=== PATIENT | female | born 1945 | race Caucasian/White ===

== ENCOUNTER → 2018-04-09 08:30 | Outpatient (CLI) | payer MEDICARE, SELFPAY ==
[2018-04-09 09:00] LABS: Add Manual Diff / Slide Review NO; Basophils Percent Auto 0.6 % (0-2); Eosinophils Percent Auto 2.1 % (2-4); Hematocrit 39.3 % (36-46); Hemoglobin 14.2 g/dL (12.0-16.0); Lymphocytes Percent Auto 31.8 % (25-40); Mean Corpuscular HGB Conc 36.2 % (30-36); Mean Corpuscular Hemoglobin 30.6 PG (26-34); Mean Corpuscular Volume 84.6 fL (80-100); Monocytes Percent Auto 5.3 % (3-14); Neutrophils Absolute Auto 4100 /uL (3000-5900); Neutrophils Percent Auto 60.2 % (50-75); Platelet Count 105 X10^3/uL (150-400); Red Blood Cell Count 4.64 X10^6/uL (4.0-5.2); Red Cell Distribution Width 13.1 % (11.6-14.8); White Blood Cell Count 6.8 X10^3/uL (4.5-11.0)
[2018-04-09 09:09] LABS: Alanine Aminotransferase 37 IU/L (9-52); Albumin 3.9 g/dL (3.5-5.0); Albumin Globulin Ratio 1.4 (1.0-2.8); Alkaline Phosphatase 80 U/L (38-126); Aspartate Aminotransferase 31 IU/L (14-36); BUN Creatinine Ratio 23.3 (6-22); Bilirubin Total 0.5 mg/dL (0.2-1.3); Blood Urea Nitrogen 14 mg/dL (7-17); Calcium 8.8 mg/dL (8.4-10.2); Carbon Dioxide 26 mmol/L (22-32); Chloride 102 mmol/L (98-107); Estimated Glomerular Filt Rate > 60.0 mL/min (>60); Globulin 2.7 g/dL (1.7-4.1); Glucose 132 mg/dL (80-110); HEMOLYSIS < 15 (0-50); Potassium 4.3 mmol/L (3.4-5.1); Sodium 139 mmol/L (137-145); Total Protein 6.6 g/dL (6.3-8.2)
== END ==
PROVIDERS: Nurse Practitioner Gerontology; Family Provider Family Medicine; PCP Family Medicine; Visit Provider Internal Medicine Hematology & Oncology
DX: C50.919 Malignant neoplasm of unspecified site of unspecified female breast (principal)
CPT/HCPCS: 36415; 80053; 85025

== ENCOUNTER 2018-04-23 09:00 | Day surgery (SDC) | payer MEDICARE, SELFPAY ==
--- NOTE | 2018-04-23 | PATH_ITS ---
[facility] Accession Number: [id number] . 01 Material submitted: . CECAL POLYP . 02 Diagnosis: Cecal Polyp: Tubular adenoma. MRV/04/25/2018 . 02 Electronically signed: . Brian Kraft MD, PhD, Pathologist NPI- [id number] . 01 Gross description: . CECAL POLYP: Received in formalin is 1 fragment(s) of ascencio, soft tissue measuring 0.4 x 0.3 x 0.2 cm submitted entirely in 1 cassette(s) /TRC /TRC . 02 Pathologist provided ICD-10: D12.0 . 02 CPT . 645922 Performed at: 01 [facility] [address], [place], [place] [id number] MD Hossein Castro MD Phone: [phone] Performed at: 02 [facility] [address] [place], [place] [id number] MD Shilo Reeves MD Phone: [phone]
[2018-04-23 10:18] VITALS: BP 119/59; PULSE 76; RESP 20; TEMP 36.4; O2SAT 98
[2018-04-23] MEDS: SODIUM CHLORIDE 0.9% 1,000 ML 200 ML IV (10:20)
--- NOTE | 2018-04-23 11:13 | PM.HP.1 ---
History of Present Illness Date Patient Seen: 04/23/18 Time Patient Seen: 11:13 Chief complaint: [id number] Narrative: Patient is a woman whose last colonoscopy was 15 years ago. She is here for screening examination. No family history. Patient History Medical History Breast cancer (Chronic ~11/2015) History of ITP (Acute) Endometrial hyperplasia (Acute) Hearing loss (Chronic 05/08/14) Surgical History Status post breast biopsy (10/13/15) Status post dilation and curettage (10/27/16) Status post partial mastectomy (11/27/15) Family & Social History Family History: Reviewed 04/23/18 by Brian Reese MD Social History: household members spouse Meds Home Medications Medication Instructions Recorded Confirmed Type tamoxifen 20 mg PO QDAY #90 tab 02/23/17 04/12/18 Rx ascorbic acid (vitamin C) [Vitamin 500 mg PO DAILY 04/12/18 04/23/18 History C] Probiotic See Label Instructions .ROUTE 04/23/18 04/23/18 History .COMPLEX Vitamin B 50 1 tab PO DAILY 04/23/18 04/23/18 History cholecalciferol (vitamin D3) 5,000 unit PO DAILY 04/23/18 04/23/18 History Allergies Allergy/AdvReac Type Severity Reaction Status Date / Time tree nut [TREE NUT] Allergy Severe ANAPHYLATIC Unverified 04/03/18 09:00 acetaminophen [From Vicodin] AdvReac Hypotension Verified 04/23/18 09:26 adhesive AdvReac Rash Verified 04/23/18 09:26 amlodipine AdvReac Confusion Verified 04/23/18 09:26 gluten AdvReac Agitated Verified 04/23/18 09:25 hydrocodone [From Vicodin] AdvReac Hypotension Verified 04/23/18 09:26 Review of Systems Review of Systems All systems reviewed & are unremarkable except as noted in HPI and below Integumentary/Breasts Comments: Prefers noted noted rather than commercial breast prosthesis Exam Vital Signs (past 8 hours): Vital Signs - 8 hr 04/23/18 10:18 Temperature 97.6 F Pulse Rate 76 Respiratory Rate 20 Blood Pressure 119/59 L Pulse Oximetry 98 Pulse Oximetry 98 Oxygen Delivery Method Room Air Narrative Exam Narrative: Co operative no apparent distress. Lungs are clear. No rales or rhonchi. Heart regular rate and rhythm without murmur gallop. Abdomen is protuberant soft nontender without mass. Mastectomy site is soft and very nicely and is much flatter than I last saw her. Assessment & Plan Plan: Assessment/Plan Narrative: I have discussed the procedure and the rationale with the patient including risks of bleeding, perforation which would necessitate a major operation, failure to find remove all lesions and the potential to tattoo. They appeared to understand and wished to proceed.
--- NOTE | 2018-04-23 11:16 | P.HP_ITS ---
History of Present Illness Date Patient Seen: 04/23/18 Time Patient Seen: 11:13 Chief complaint: [id number] Narrative: Patient is a woman whose last colonoscopy was 15 years ago. She is here for screening examination. No family history. Patient History Medical History Breast cancer (Chronic ~11/2015) History of ITP (Acute) Endometrial hyperplasia (Acute) Hearing loss (Chronic 05/08/14) Surgical History Status post breast biopsy (10/13/15) Status post dilation and curettage (10/27/16) Status post partial mastectomy (11/27/15) Family & Social History Family History: Reviewed 04/23/18 by Brian Reese MD Social History: household members spouse Meds Home Medications Medication Instructions Recorded Confirmed Type tamoxifen 20 mg PO QDAY #90 tab 02/23/17 04/12/18 Rx ascorbic acid (vitamin C) [Vitamin 500 mg PO DAILY 04/12/18 04/23/18 History C] Probiotic See Label Instructions .ROUTE 04/23/18 04/23/18 History .COMPLEX Vitamin B 50 1 tab PO DAILY 04/23/18 04/23/18 History cholecalciferol (vitamin D3) 5,000 unit PO DAILY 04/23/18 04/23/18 History Allergies Allergy/AdvReac Type Severity Reaction Status Date / Time tree nut [TREE NUT] Allergy Severe ANAPHYLATIC Unverified 04/03/18 09:00 acetaminophen [From Vicodin] AdvReac Hypotension Verified 04/23/18 09:26 adhesive AdvReac Rash Verified 04/23/18 09:26 amlodipine AdvReac Confusion Verified 04/23/18 09:26 gluten AdvReac Agitated Verified 04/23/18 09:25 hydrocodone [From Vicodin] AdvReac Hypotension Verified 04/23/18 09:26 Review of Systems Review of Systems All systems reviewed & are unremarkable except as noted in HPI and below Integumentary/Breasts Comments: Prefers noted noted rather than commercial breast prosthesis Exam Vital Signs (past 8 hours): Vital Signs - 8 hr 3 04/23/18 10:18 Temperature 97.6 F Pulse Rate 76 Respiratory Rate 20 Blood Pressure 119/59 L Pulse Oximetry 98 Pulse Oximetry 98 Oxygen Delivery Method Room Air Narrative Exam Narrative: Co operative no apparent distress. Lungs are clear. No rales or rhonchi. Heart regular rate and rhythm without murmur gallop. Abdomen is protuberant soft nontender without mass. Mastectomy site is soft and very nicely and is much flatter than I last saw her. Assessment & Plan Plan: Assessment/Plan Narrative: I have discussed the procedure and the rationale with the patient including risks of bleeding, perforation which would necessitate a major operation, failure to find remove all lesions and the potential to tattoo. They appeared to understand and wished to proceed.
--- NOTE | 2018-04-23 11:16 | PM.PREOP ---
Pre-operative Note Interval Note Pre-op Check: History & Physical exam performed today H&P completed within 30 days and has changed as indicated here:: None ASA Class (for procedural sedation): I
--- NOTE | 2018-04-23 11:40 | PM.OP.ENDO ---
Operative Date/Time/Diagnoses - Date of procedure: 04/23/18 Time of procedure: 11:40 Pre-op diagnosis: Screening examination. Last colonoscopy about 15 years ago. Post-op diagnosis: same (One small polyp in the cecum which was snared) Procedure & Clinicians Study performed: Colonoscopy with hot snare polypectomy Same procedure as scheduled: Yes Indications: Screening Surgeon: Brian Reese Procedure Notes SCOAP/Timeout: Performed Procedure in detail: The patient was placed in the left lateral decubitus position and underwent IV sedation directed by the surgeon consisting of fentanyl and Versed. Digital exam was[unremarkable]. The scope was inserted and advanced through the rectum into the sigmoid, descending, transverse, and ascending colon. All were normal in appearance. The cecum was reached identified by the ileocecal valve and the appendiceal opening. There was a small polyp in the cecum which I chose to snare and completely removed. The scope was gradually brought out. No other Polyps were found. The scope ultimately was retroflexed in the rectum. The appearance was normal except for some small scars on old hemorrhoidal disease. The scope was removed and the patient tolerated the procedure well Scope withdrawal time: 11 min excluding snare time Sedation minutes: 21 Findings: internal hemorrhoids (Small with scarring) and polyp (Cecal) Specimen(s): other (Cecal polyp) Complications: none Recommendations: Colonscopy in 5 years (Due to the finding of a polyp) Plan for aftercare: Will send a note regarding pathology Follow up: as needed Disposition: PACU
[2018-04-23 11:46] VITALS: BP 106/55; PULSE 82; RESP 18; TEMP 36.9; O2SAT 97
[2018-04-23 11:47] VITALS: BP 121/66; PULSE 96; RESP 17; O2SAT 98
[2018-04-23] MEDS: fentaNYL 250 MCG/5 ML INJ IV (11:49)
[2018-04-23] MEDS: MIDAZOLAM 5 MG/5 ML VIAL IV (11:49)
--- NOTE | 2018-04-23 15:18 | SUR.PHASEII ---
pt to opd.. awke and conversant.. s.o. brought back.. no pain no dysphagia.. vss within preop levels.. wants to stop and eat on the way home.. pt ready to go.. no complaints
== END 2018-04-23 11:50 ==
PROVIDERS: Specialist; Family Provider Family Medicine; PCP Family Medicine; Visit Provider Surgery
PROC: 0DJD8ZZ Inspection of Lower Intestinal Tract, Via Natural or Artificial Opening Endoscopic (ICD-10-PCS; CPT 45378; principal; 2018-04-23 10:45)
DX: Z12.11 Encounter for screening for malignant neoplasm of colon (principal); D12.0 Benign neoplasm of cecum; K64.8 Other hemorrhoids
CPT/HCPCS: 45385; 88305; 99152; J2250; J3010

== ENCOUNTER → 2018-04-23 09:34 | Day surgery (SDC) | payer MEDICARE, SELFPAY | PROVIDERS: Family Provider Family Medicine; PCP Family Medicine; Visit Provider Specialist ==

== ENCOUNTER → 2018-06-28 13:41 | Outpatient (CLI) | payer MEDICARE, SELFPAY ==
[2018-06-28 13:45] LABS: Bacteria Urine None Seen; RBC Urine None Seen (0-5/HPF)
[2018-06-28 14:09] LABS: Appearance Urine UA CLEAR; Bilirubin Urine UA NEGATIVE (NEGATIVE); Color Urine UA ORANGE; Glucose Urine UA TRACE g/dL (Normal); Ketones Urine UA NEGATIVE (NEGATIVE); Leukocyte Esterase Urine UA 1+ (NEGATIVE); Nitrite Urine UA POSITIVE (Negative); Occult Blood Urine UA TRACE-INTACT (Negative); Protein Urine UA NEGATIVE (Negative)
[2018-06-28 14:52] LABS: Culture Indicated Urine Specimen Cultured; WBC Urine 5-10/HPF (0-5/HPF)
== END ==
PROVIDERS: PCP Family Medicine; Visit Provider Family Medicine
DX: R35.0 Frequency of micturition (principal)
CPT/HCPCS: 81001; 87086

== ENCOUNTER → 2018-10-14 07:42 | Outpatient (CLI) | payer MEDICARE, SELFPAY ==
--- NOTE | 2018-10-14 | DI.MG.S_ITS ---
UNILATERAL LEFT DIGITAL SCREENING MAMMOGRAM 3D/2D WITH CAD POST MASTECTOMY: 10/14/2018 CLINICAL: Routine screening. Personal history of right breast cancer. Family history of breast cancer. Comparison is made to exams dated: 10/25/2017 mammogram, 10/24/2016 mammogram, and 09/28/2015 mammogram - [facility]. There are scattered fibroglandular elements in left breast. Current study was also evaluated with a Computer Aided Detection (CAD) system. There are diffuse benign secretory calcifications throughout the left breast. There are mole markers on the left breast. No significant masses, calcifications, or other findings are seen in the breast. There has been no significant interval change. IMPRESSION: There is no mammographic evidence of malignancy. A 1 year screening mammogram is recommended. This exam was interpreted at Station ID: [id number]. NOTE: For mammograms, a report in lay terms will be sent to the patient. Approximately 15% of breast malignancies will not be visualized mammographically. In the management of a palpable breast mass, a negative mammogram must not discourage biopsy of a clinically suspicious lesion. Electronically Signed By: Stef Rodriguez M.D. ecl/:10/15/2018 09:39:18 copy to: Campos Mitchell letter sent: Normal Exam ACR BI-RADS Category 2: Benign Finding(s) 3342F
== END ==
PROVIDERS: Family Provider Family Medicine; PCP Family Medicine; Visit Provider Family Medicine
DX: Z12.31 Encounter for screening mammogram for malignant neoplasm of breast (principal); Z85.3 Personal history of malignant neoplasm of breast; Z80.3 Family history of malignant neoplasm of breast
CPT/HCPCS: 77063; 77065

== ENCOUNTER → 2019-02-05 16:47 | Outpatient (CLI) | payer MEDICARE, SELFPAY ==
[2019-02-05 18:07] LABS: Add Manual Diff / Slide Review NO; Basophils Absolute Auto 0 /uL (0-100); Basophils Percent Auto 0.3 % (0-2); Eosinophils Absolute Auto 200 /uL (0-450); Eosinophils Percent Auto 1.8 % (2-4); Hematocrit 43.1 % (36-46); Hemoglobin 14.8 g/dL (12.0-16.0); Lymphocytes Absolute Auto 3000 /uL (1100-4500); Mean Corpuscular HGB Conc 34.4 % (30-36); Mean Corpuscular Hemoglobin 29.9 PG (26-34); Mean Corpuscular Volume 86.9 fL (80-100); Monocytes Absolute Auto 400 /uL (0-900); Monocytes Percent Auto 4.9 % (3-14); Neutrophils Absolute Auto 5400 /uL (1500-7000); Platelet Count 136 X10^3/uL (150-400); Red Blood Cell Count 4.96 X10^6/uL (4.0-5.2); Red Cell Distribution Width 13.3 % (11.6-14.8)
[2019-02-05 18:22] LABS: Alanine Aminotransferase 41 IU/L (9-52); Albumin 4.6 g/dL (3.5-5.0); Albumin Globulin Ratio 1.6 (1.0-2.8); Alkaline Phosphatase 109 U/L (38-126); Aspartate Aminotransferase 40 IU/L (14-36); BUN Creatinine Ratio 31.4 (6-22); Bilirubin Total 0.5 mg/dL (0.2-1.3); Blood Urea Nitrogen 22 mg/dL (7-17); Calcium 9.4 mg/dL (8.4-10.2); Carbon Dioxide 25 mmol/L (22-32); Chloride 101 mmol/L (98-107); Cholesterol 179 mg/dL (140-199); Estimated Glomerular Filt Rate > 60.0 mL/min (>60); Globulin 2.8 g/dL (1.7-4.1); Glucose 93 mg/dL (80-110); HDL Cholesterol 42 mg/dL (40-60); HEMOLYSIS 20 (0-50); LDL Cholesterol Calculated 85 mg/dL (<100); Potassium 4.3 mmol/L (3.4-5.1); Sodium 138 mmol/L (137-145); Total Protein 7.4 g/dL (6.3-8.2); Triglycerides 260 mg/dL (35-150)
[2019-02-05 18:33] LABS: Troponin I < 0.012 ng/mL (0.01-0.034)
[2019-02-05 18:52] LABS: TSH w/ Reflex to FT4 2.41 uIU/mL (0.47-4.68)
== END ==
PROVIDERS: Family Provider Family Medicine; PCP Family Medicine; Visit Provider Family Medicine
DX: R07.9 Chest pain, unspecified (principal)
CPT/HCPCS: 36415; 80053; 80061; 84443; 84484; 85025

== ENCOUNTER → 2019-02-12 10:48 | Outpatient (CLI) | payer MEDICARE, SELFPAY ==
--- NOTE | 2019-03-01 12:13 | PM.CARDMON.1 ---
[employer] Report Referral & Results Date Patient Seen: 02/12/19 Requesting provider: Amber Carney Indication: PVCs Duration of monitoring (days): 5 Diary information: There were 8 diary entries from the patient associated with sinus rhythm and PVCs There were 9 patient triggered events associated with sinus rhythm and PVCs Data: Minimum heart rate identified was 56 beats per minute at 04:47 on 02/13/2019 Maximum sinus heart rate was 151 beats per minute at 10:04 on 02/14/2019 Maximum overall heart rate was 176 beats per minute during a 7 beat run of SVT at 11:06 on 02/17/2019 Less than 1% of identified beats were either supraventricular ectopic or ventricular ectopic in origin Patient did have a 7.2nd run of ventricular trigeminy Patient had 3 runs of SVT the fastest as above and the longest was 5 beats Impression: This satellite project site monitor shows occasional PACs and PVCs. Patient with very rare very short SVT. Clinical correlation suggested
== END ==
PROVIDERS: Family Provider Family Medicine; PCP Family Medicine; Visit Provider Family Medicine
DX: I49.3 Ventricular premature depolarization (principal)
CPT/HCPCS: 0296T; 0298T

== ENCOUNTER → 2019-02-28 08:01 | Outpatient (CLI) | payer MEDICARE, SELFPAY ==
--- NOTE | 2019-02-28 09:23 | PM.TREADMILL ---
Cardiac Stress Test Report Referral & Results Date Patient Seen: 02/28/19 Requesting provider: Amber Carney Indication: PVCs, chest discomfort Rest ECG: Unremarkable Procedure Note: Today following both written and verbal informed consent the patient was exercised according to a standard Silvano protocol patient went for a total of 5 minutes 38 seconds achieving a maximum heart rate of 190 for maximum systolic blood pressure of 170. This is approximately 7.0 METS. Exercise was terminated at this point because of targets for met. Patient was also given Cardiolite through a previously started Hep-Lock IV by the industrial waste treatment technician approximately 1 minute prior to the cessation of exercise. There is a tremendous amount of motion artifact while patient was exercising likely due to static electricity in patient's gown. There is no evidence of ST-T segment change immediately upon cessation activity or at any point during the recovery portion of the test. No dysrhythmias were identified but again could have been of obscured during exercise as above. Functional aerobic impairment rated about-3% on the active scale or 103% of normal Impression: No evidence of ischemia Better than average exercise capacity Please see perfusion imaging report as well Please note: Actual ECG tracings can be found in the PACS system.
--- NOTE | 2019-03-03 19:28 | DI.NM.S_ITS ---
DATE OF SERVICE: 02/28/2019 PROCEDURE: Exercise perfusion study. INDICATIONS: Symptomatic PVCs. RADIOPHARMACEUTICAL: 26.6 mCi technetium-99m Myoview IV was injected at stress and 26.2 mCi technetium-99m Myoview IV was injected at rest. CARDIAC STRESS: Patient underwent exercise perfusion study under the supervision of an attending staff. She walked on Silvano protocol for 5 minutes 38 seconds and achieved 7 METs of workload and normal blood pressure response, and functional aerobic impairment -3%. Patient achieved 120% target heart rate. Baseline rhythm sinus with some repolarization changes. During stress, there was significant artifact; however, EKG in recovery did not reveal any significant ischemic changes or significant arrhythmias. No significant symptoms were reported. RAW DATA: There was increased subdiaphragmatic activity as well as breast shadow seen. GATED STUDY: Stress LV ejection fraction 80%. No significant wall motion abnormalities. Resting end-diastolic volume is 82 mL. No transient ischemic dilatation. TID ratio is 1.10, which is within normal limits. Lung/heart ratio is 0.35, which is within normal limits. MYOCARDIAL PERFUSION SCAN: Stress supine and resting supine images revealed small sized mildly decreased perfusion of basal inferior wall, which got completely resolved during prone images suggestive of diaphragmatic tissue attenuation artifact. In prone images, there was mildly decreased perfusion of mid anterior wall which was not seen during supine images. There is some shifting tissue attenuation artifact. No significant ischemia infarction pattern. CONCLUSION: I will call this study likely a normal myocardial perfusion study with evidence of tissue attenuation artifact as stated above. No convincing ischemia infarction pattern. Overall, left ventricular (LV) function is preserved. Overall, this is a low-risk myocardial perfusion study. During raw data, spleen shadow was seen as well. Correlate clinically and if there is suspicion for spleen enlargement, consider ultrasound, abdomen. Ariana Yates - WHEEL [employer]ER/patricia/ab doc#: [id number]/job#: [id number] dd: 03/03/2019 12:42:00 dt: 03/03/2019 19:16:00 DICTATING MD/COPIES TO: Zuleyka Weber MD COPIES MNE: GABRIELA
== END ==
PROVIDERS: PCP Family Medicine; Visit Provider Family Medicine
DX: I49.3 Ventricular premature depolarization (principal)
CPT/HCPCS: 78452; 93016; 93017; 93018; A9502

== ENCOUNTER → 2019-03-03 09:12 | Outpatient (CLI) | payer MEDICARE, SELFPAY ==
--- NOTE | 2019-03-03 09:15 | DI.ECHO.S_ITS ---
[facility] +---------+ : : [address] : : : [place], [place] : : : : [id number] : : : : Phone: [phone] Echocardiogram Report + + :Name: KONG PUENTE Study Date: 03/03/2019 Height: 64 in : :[facility] Exam Location: [facility] Weight: 188 lb : : Gender: Female BSA: 1.9 m2 : :: 1945 Age: 74 yrs BP: 140/75 mmHg: :Reason For Study: PVC'S : :Ordering Physician: Amber : :Rommel Performed By: Aster Page : + + Interpretation Summary 1) Normal left ventricular thickness, size, wall motion, and systolic function (EF 60-65%). 2) Normal right ventricular size and function. 3) No significant valvular abnormalities. 4) No prior Echo available for comparison. Procedure: A two-dimensional transthoracic echocardiogram with color flow and Doppler was performed. The study quality was technically adequate. There is no prior echocardiogram noted for this patient. The patient was in normal sinus rhythm during the exam. The patient had occasional PVCs during the exam. Left Ventricle: The left ventricle is normal in size. There is normal left ventricular wall thickness. Proximal septal thickening is noted. A false chord is noted (normal variant). The ejection fraction is estimated to be 60-65%. Left ventricular systolic function is normal. There are no obvious focal wall motion abnormalities noted but poor endocardial definition reduces the sensitivity for the detection of such. Right Ventricle: The right ventricle is normal in size and function. Atria: The left atrium is mildly dilated. Right atrial size is normal. There is no Doppler evidence for an interatrial shunt. Mitral Valve: The mitral valve is normal in structure and function. The mitral valve leaflets are slightly calcified. There is mild mitral annular calcification. There is trace mitral regurgitation. Aortic Valve: The aortic valve is trileaflet. The aortic valve opens well. There is discrete nodular thickening of the left coronary cusp. There is no aortic valve stenosis. No aortic regurgitation is present. Tricuspid Valve: The tricuspid valve is normal in structure and function. There is a trace or physiologic amount of tricuspid regurgitation. Pulmonary artery pressures cannot be estimated because of the lack of a measurable TR jet velocity. Pulmonic Valve: The pulmonic valve is not well visualized. Great Vessels: The aortic root is normal size. The ascending aorta is at the upper limits of normal in size. The pulmonary artery is not well visualized, but is probably normal size. The inferior vena cava was not well visualized. Pericardium/ Pleura There is no pericardial effusion. There is no pleural effusion. MMode/2D Measurements & Calculations LVIDd: 4.6 cm LVOT diam: 2.0 cm LVIDs: 3.0 cm Ao root diam: 3.5 cm FS: 35.6 % asc Aorta Diam: 3.6 cm EPSS: 0.27 cm IVSd: 0.74 cm LVPWd: 0.90 cm LV presley. diameter/BSA (cm/m^2): 2.4 LV sys. diameter/BSA (cm/m^2): 1.6 LA A2 area: 24.2 cm2 RA long axis: 4.6 cm LA A4 area: 21.8 cm2 RA area: 15.5 cm2 LA length (vol): 5.9 cm RA vol: 44.3 ml LA vol: 75.9 ml RA : 23.2 ml/m2 LA vol index: 39.8 ml/m2 RVD1 (basal): 3.3 cm TAPSE: 1.6 cm Doppler Measurements & Calculations Ao V2 max: 122.2 cm/sec LVOT Max Abhijeet: 89.2 cm/sec Ao V2 mean: 95.0 cm/sec LV V1 max P.2 mmHg Ao max P.0 mmHg LV V1 VTI: 18.3 cm Ao mean P.8 mmHg REBEL(I,D): 2.4 cm2 Ao V2 VTI: 23.2 cm REBEL(V,D): 2.2 cm2 sev ratio: 0.79 REBEL indexed to BSA (cm^2/m^2): 1.3 MV E max abhijeet: 77.0 cm/sec PA V2 max: 82.8 cm/sec MV A max abhijeet: 103.1 cm/sec PA V2 mean: 56.6 cm/sec MV E/A: 0.75 PA mean P.4 mmHg Med Peak E' Abhijeet: 4.2 cm/sec PA Accel Time: 0.06 sec E/E' med: 18.2 Lat Peak E' Abhijeet: 6.6 cm/sec E/E' lat: 11.7 E/e' average: 14.9 MV dec time: 0.13 sec MV P1/2t: 38.3 msec MV P1/2t max abhijeet: 79.3 cm/sec SV(LVOT): 55.4 ml MVA(P1/2t): 5.7 cm2 Reading Physician:12:38 PM
== END ==
PROVIDERS: PCP Family Medicine; Visit Provider Family Medicine
DX: I49.3 Ventricular premature depolarization (principal)
CPT/HCPCS: 93306

== ENCOUNTER → 2019-03-18 08:41 | Outpatient (CLI) | payer MEDICARE, SELFPAY ==
--- NOTE | 2019-03-18 08:46 | DI.US.S_ITS ---
PROCEDURE: US ABDOMEN LIMITED INDICATIONS: SPLENOMEGALY TECHNIQUE: Real-time focused scanning was performed of the abdomen, with image documentation. COMPARISON: 06/30/15 FINDINGS: Limited sonographic evaluation of the upper left abdomen was performed to evaluate the spleen. The spleen measures 12.0 cm in maximum dimension, previously measuring up to 14.5 cm. No suspicious splenic abnormalities identified. IMPRESSION: Normal sonographic evaluation of the spleen. Dictated by: Clark Dickerson M.D. on 03/18/2019 at 17:44 Approved by: Clark Dickerson M.D. on 03/18/2019 at 17:47
== END ==
PROVIDERS: PCP Family Medicine; Visit Provider Family Medicine
DX: R16.1 Splenomegaly, not elsewhere classified (principal)
CPT/HCPCS: 76705

== ENCOUNTER → 2019-04-02 13:00 | Oncology outpatient (ONC) | payer MEDICARE, SELFPAY ==
--- NOTE | 2018-04-12 09:02 | ONC.APRN.PN ---
Assessment and Plan (1) Breast cancer Onset Date: ~11/2015 Problem details: November 2015 mastectomy, now on tamoxifen Current visit: No Status: Chronic 04/12/18 09:26 Ariana is a 73-year-old female who carries a diagnosis of right side stage II, node negative ER positive breast cancer. She continues on tamoxifen in the adjuvant setting which she is tolerating well, no adverse effects. Tamoxifen was initiated December of 2015. No clinical signs or symptoms of disease recurrence on exam today. CBC, CMP unremarkable. Unilateral annual screening mammogram October 25, 2017 was without evidence of malignancy, recommendation is to repeat in 1 year. Patient is requesting once yearly visits as opposed to every 6 months[place]. I reviewed with the patient tamoxifen red flags specifically vaginal bleeding lower extremity pain or swelling, rashes, chest pain, shortness of breath she is to be seen right away. Otherwise, if she prefers we can extend visits to every 12 months. Also continue mammogram every 12 months. She is also followed closely by her primary care provider Dr. Carney. Return to clinic in 6-12 months for provider visit CBC CMP. She will be due for mammogram after October 25, 2018. - Time Spent with Patient 35 mins PN -Subjective Interval history: Ariana is a 73 year old female who carries a diagnosis of right side stage II node positive ER positive breast cancer. Patient presents today for 6 month interval visit. She continues with tamoxifen in the adjuvant setting which was initiated December 2015. On exam today Ariana has no complaints whatsoever. Overall she is feeling quite well. Continues to tolerate tamoxifen without any adverse effects specifically no vaginal bleeding, lower extremity swelling, shortness of breath, chest pain, dizziness, lightheadedness. No skin changes. No new lumps or bumps to report. She has not had any recent illnesses. She is requesting to extend her visits to yearly[place]. Past Medical History The patient's past medical history is significant for: 1) Right-sided invasive breast cancer: Stage II (pT2,pN0, MOJGAN, M0) Diagnosis/surgery: -10/13/2015. Ultrasound core needle biopsy. Pathology confirming an infiltrating mammary carcinoma with a [place] histological score of 2 out of 3. Immunostains showing ER and [place] at greater than 95% and greater than 95%, respectively. HER-2 of 1+. Ki-67 less than 10%. -11/18/2015.R ight simple mastectomy with sentinal node procedure. Primary measuring 23 x 22 x 21 mm with micropapillary features. Posterior margin 4 mm DCIS was seen in the mastectomy specimen measuring 9 mm with a maximum linear dimension of 3 mm. Posterior margin clear by 10 mm. One sentinel lymph node was positive for a 1-mm deposit. No extracapsular extension was seen. Prognosis: -11/18/2015. Oncotype DX. Recurrence score of 12 with a 10-year risk of distant recurrence after 5 years of tamoxifen 8%. Adjuvant treatment: -December 2015-present. Tamoxifen 20 mg daily x 5 years. Surveillance: -10/24/2016. Left-sided screening mammogram. No evidence of new disease. 2. Chronic ITP, identified in 2012. Presenting with a platelet count of 117,000. Patient remains in surveillance at this time with no evidence of clonal disease based on peripheral flow cytometry. No evidence of splenomegaly based on ultrasound. Of note, she does have a positive SHAYLEE with a speckled pattern, consistently elevated since July 2015 with a titer of 1:80. 3. Subarachnoid bleed in 2012, trauma induced while a resident of [place]. 4. Lower extremity peripheral neuropathy. 5. Chronic headaches. 6. Osteoarthritis. 7. Sleep apnea. 8. Vitamin D deficiency. Results - Imaging Additional studies: Procedures Extirpation of Matter from Right Breast, Open Approach (11/19/15) Resection of Right Breast, Open Approach (11/19/15) Home Medications and Allergies Home Medications Medication Instructions Recorded Confirmed Type tamoxifen 20 mg PO QDAY #90 tab 02/23/17 04/03/18 Rx [CLAUDINE/MG] Q DAY #0 10/23/17 04/03/18 History Allergies Allergy/AdvReac Type Severity Reaction Status Date / Time tree nut [TREE NUT] Allergy Severe ANAPHYLATIC Unverified 04/03/18 09:00 Exam Narrative: well appearing - Constitutional positive no acute distress, positive obese - Routine HEENT Exam Head: Present: normocephalic Eye: Present: EOMI, PERRL, normal accommodation ENT: Present: mucous membranes moist - Routine Neck Exam Present: supple. Absent: lymphadenopathy - Routine Chest/Breast/Axilla Exam Chest wall exam standard: Absent: tenderness, mass Breast: Present: right mastectomy. Absent: tenderness, mass, erythema, rashes Axillae: Absent: lymphadenopathy, mass, tenderness, erythema - Routine Respiratory Exam Present: Clear to auscultation bilaterally - Routine Cardiovascular Exam Present: RRR - Routine Abdominal Exam Present: soft, normoactive bowel sounds. Absent: tenderness, distended - Routine Extremities Exam Absent: edema, calf tenderness - Routine Skin Exam Present: intact, normal turgor. Absent: petechiae - Routine Neurological Exam Present: alert, oriented X3
[2018-04-12 09:42] VITALS: BP 128/71; PULSE 87; RESP 15; TEMP 36.7; O2SAT 97
[2019-03-25 09:21] LABS: Add Manual Diff / Slide Review NO; Basophils Absolute Auto 0 /uL (0-100); Basophils Percent Auto 0.5 % (0-2); Eosinophils Absolute Auto 100 /uL (0-450); Eosinophils Percent Auto 1.7 % (2-4); Hematocrit 40.6 % (36-46); Hemoglobin 14.3 g/dL (12.0-16.0); Lymphocytes Absolute Auto 2100 /uL (1100-4500); Lymphocytes Percent Auto 32.6 % (25-40); Mean Corpuscular HGB Conc 35.2 % (30-36); Mean Corpuscular Hemoglobin 30.3 PG (26-34); Mean Corpuscular Volume 86.2 fL (80-100); Monocytes Absolute Auto 400 /uL (0-900); Monocytes Percent Auto 5.5 % (3-14); Neutrophils Absolute Auto 3900 /uL (1500-7000); Neutrophils Percent Auto 59.7 % (50-75); Platelet Count 113 X10^3/uL (150-400); Red Blood Cell Count 4.72 X10^6/uL (4.0-5.2); Red Cell Distribution Width 13.1 % (11.6-14.8); White Blood Cell Count 6.5 X10^3/uL (4.5-11.0)
[2019-03-25 09:43] LABS: Alanine Aminotransferase 29 IU/L (9-52); Albumin 4.1 g/dL (3.5-5.0); Albumin Globulin Ratio 1.6 (1.0-2.8); Alkaline Phosphatase 83 U/L (38-126); Aspartate Aminotransferase 32 IU/L (14-36); BUN Creatinine Ratio 21.4 (6-22); Bilirubin Total 0.6 mg/dL (0.2-1.3); Blood Urea Nitrogen 15 mg/dL (7-17); Calcium 8.7 mg/dL (8.4-10.2); Carbon Dioxide 28 mmol/L (22-32); Chloride 102 mmol/L (98-107); Estimated Glomerular Filt Rate > 60.0 mL/min (>60); Globulin 2.6 g/dL (1.7-4.1); Glucose 106 mg/dL (80-110); HEMOLYSIS < 15 (0-50); Potassium 4.2 mmol/L (3.4-5.1); Sodium 138 mmol/L (137-145); Total Protein 6.7 g/dL (6.3-8.2)
--- NOTE | 2019-03-25 15:36 | PC.NURSE ---
Called in refill for Tamoxifen 20 mg po daily 90 tabs with [address] Joseph on 04/02. Has been tolerating the Tamoxifen without any difficulties for 3 years.
[2019-04-02 12:55] VITALS: BP 131/63; PULSE 90; RESP 18; TEMP 36.7; O2SAT 97
--- NOTE | 2019-04-02 13:26 | ONC.PN ---
PN -Subjective Interval history: Diagnosis: right side stage II node positive ER positive breast cancer. ER/MD positive, HER2 negative: Low risk by Oncotype Previous treatment: 1. Mastectomy November 2015 2. Tamoxifen starting in November 2015. Interval history: The patient is a 74-year-old woman who returns today for follow-up. She has a history of node-negative breast cancer. She has been on tamoxifen for about 2 and half years. She continues to tolerate it well. She has no specific complaints today. She has not noticed any hot flashes. She denies any new aches or pains. No fevers chills or sweats. No shortness of breath or cough. She has not noted any abdominal complaints. She denies any other changes in her health. Past Medical History The patient's past medical history is significant for: 1) Right-sided invasive breast cancer: Stage II (pT2,pN0, MOJGAN, M0) Diagnosis/surgery: -10/13/2015. Ultrasound core needle biopsy. Pathology confirming an infiltrating mammary carcinoma with a Nora histological score of 2 out of 3. Immunostains showing ER and MD at greater than 95% and greater than 95%, respectively. HER-2 of 1+. Ki-67 less than 10%. -11/18/2015.R ight simple mastectomy with sentinal node procedure. Primary measuring 23 x 22 x 21 mm with micropapillary features. Posterior margin 4 mm DCIS was seen in the mastectomy specimen measuring 9 mm with a maximum linear dimension of 3 mm. Posterior margin clear by 10 mm. One sentinel lymph node was positive for a 1-mm deposit. No extracapsular extension was seen. Prognosis: -11/18/2015. Oncotype DX. Recurrence score of 12 with a 10-year risk of distant recurrence after 5 years of tamoxifen 8%. Adjuvant treatment: -December 2015-present. Tamoxifen 20 mg daily x 5 years. Surveillance: -10/24/2016. Left-sided screening mammogram. No evidence of new disease. 2. Chronic ITP, identified in 2012. Presenting with a platelet count of 117,000. Patient remains in surveillance at this time with no evidence of clonal disease based on peripheral flow cytometry. No evidence of splenomegaly based on ultrasound. Of note, she does have a positive SHAYLEE with a speckled pattern, consistently elevated since July 2015 with a titer of 1:80. 3. Subarachnoid bleed in 2012, trauma induced while a resident of [place]. 4. Lower extremity peripheral neuropathy. 5. Chronic headaches. 6. Osteoarthritis. 7. Sleep apnea. 8. Vitamin D deficiency. Home Medications and Allergies Home Medications Medication Instructions Recorded Confirmed Type tamoxifen 20 mg PO QDAY #90 tab 02/23/17 04/02/19 Rx ascorbic acid (vitamin C) [Vitamin 500 mg PO DAILY 04/12/18 04/02/19 History C] Probiotic See Rx Instructions .ROUTE .COMPLEX 04/23/18 04/02/19 History Vitamin B 50 1 tab PO DAILY 04/23/18 04/02/19 History cholecalciferol (vitamin D3) 5,000 unit PO DAILY 04/23/18 04/02/19 History CMP Estrial See Rx Instructions .ROUTE 07/05/18 04/02/19 Rx .COMPLEX #30 gram cyanocobalamin (vitamin B-12) 1,000 mcg PO DAILY 04/02/19 04/02/19 History [Vitamin B-12] Allergies Allergy/AdvReac Type Severity Reaction Status Date / Time tree nut [TREE NUT] Allergy Severe ANAPHYLATIC Unverified 04/03/18 09:00 acetaminophen [From Vicodin] AdvReac Hypotension Verified 04/23/18 09:26 adhesive AdvReac Rash Verified 04/23/18 09:26 amlodipine AdvReac Confusion Verified 04/23/18 09:26 gluten AdvReac Agitated Verified 04/23/18 09:25 hydrocodone [From Vicodin] AdvReac Hypotension Verified 04/23/18 09:26 Exam Vital signs: Vital Signs Temp Pulse Resp BP Pulse Ox 04/02/19 12:55 98.1 F 90 18 131/63 97 Intake and Output 04/01/19 04/02/19 04/02/19 23:59 07:59 15:59 Other: Weight 87.7 kg Patient Weight 04/02/19 23:59 Weight 87.7 kg - Constitutional positive no acute distress, positive average body habitus - Routine HEENT Exam Head: Present: normocephalic, atraumatic Eye: Present: EOMI, PERRL. Absent: conjunctival icterus, scleral injection ENT: Present: mucous membranes moist, oropharynx clear - Routine Neck Exam Present: supple. Absent: lymphadenopathy, thyromegaly - Routine Chest/Breast/Axilla Exam Breast: Present: right mastectomy Comments: The right mastectomy incision is well healed. There is no nodularity or masses. No suspicious masses in the left breast. She has no axillary adenopathy on either side. - Routine Respiratory Exam Present: Clear to auscultation bilaterally. Absent: rales, wheezes - Routine Cardiovascular Exam Present: RRR, S1, S2. Absent: murmur - Routine Abdominal Exam Present: soft, normoactive bowel sounds. Absent: tenderness, organomegaly, mass - Routine Extremities Exam Absent: cyanosis, clubbing, edema - Routine Skin Exam Present: intact. Absent: petechiae, rash - Routine Neurological Exam Present: alert, oriented X3 - Routine Psychiatric Exam Present: normal affect, normal thought process Results - Labs Laboratory Last Values WBC 6.5 X10^3/uL (4.5-11.0) 03/25/19 08:39 RBC 4.72 X10^6/uL (4.0-5.2) 03/25/19 08:39 Hgb 14.3 g/dL (12.0-16.0) 03/25/19 08:39 Hct 40.6 % (36-46) 03/25/19 08:39 MCV 86.2 fL (80-100) 03/25/19 08:39 MCH 30.3 PG (26-34) 03/25/19 08:39 MCHC 35.2 % (30-36) 03/25/19 08:39 RDW 13.1 % (11.6-14.8) 03/25/19 08:39 Plt Count 113 X10^3/uL (150-400) L 03/25/19 08:39 Neut % (Auto) 59.7 % (50-75) 03/25/19 08:39 Lymph % (Auto) 32.6 % (25-40) 03/25/19 08:39 Meriwether % (Auto) 5.5 % (3-14) 03/25/19 08:39 Eos % (Auto) 1.7 % (2-4) L 03/25/19 08:39 Baso % (Auto) 0.5 % (0-2) 03/25/19 08:39 Neut # (Auto) 3900 /uL (8139-0258) 03/25/19 08:39 Lymph # (Auto) 2100 /uL (0359-1442) 03/25/19 08:39 Meriwether # (Auto) 400 /uL (0-900) 03/25/19 08:39 Eos # (Auto) 100 /uL (0-450) 03/25/19 08:39 Baso # (Auto) 0 /uL (0-100) 03/25/19 08:39 Sodium 138 mmol/L (137-145) 03/25/19 08:39 Potassium 4.2 mmol/L (3.4-5.1) 03/25/19 08:39 Chloride 102 mmol/L (98-107) 03/25/19 08:39 Carbon Dioxide 28 mmol/L (22-32) 03/25/19 08:39 BUN 15 mg/dL (7-17) 03/25/19 08:39 Creatinine 0.70 mg/dL (0.52-1.04) 03/25/19 08:39 Estimated GFR > 60.0 mL/min (>60) 03/25/19 08:39 BUN/Creatinine Ratio 21.4 (6-22) 03/25/19 08:39 Glucose 106 mg/dL (80-110) 03/25/19 08:39 Calcium 8.7 mg/dL (8.4-10.2) 03/25/19 08:39 Total Bilirubin 0.6 mg/dL (0.2-1.3) 03/25/19 08:39 AST 32 IU/L (14-36) 03/25/19 08:39 ALT 29 IU/L (9-52) 03/25/19 08:39 Alkaline Phosphatase 83 U/L (38-126) 03/25/19 08:39 Total Protein 6.7 g/dL (6.3-8.2) 03/25/19 08:39 Albumin 4.1 g/dL (3.5-5.0) 03/25/19 08:39 Globulin 2.6 g/dL (1.7-4.1) 03/25/19 08:39 Albumin/Globulin Ratio 1.6 (1.0-2.8) 03/25/19 08:39 - Imaging Additional studies: Procedures Extirpation of Matter from Right Breast, Open Approach (11/19/15) Resection of Right Breast, Open Approach (11/19/15) Assessment and Plan (1) Breast cancer Onset Date: 10/2015 Problem details: Right-sided T2N0 ER+; 11/2015 mastectomy; on 01/2016 tamoxifen Current visit: No Status: Chronic 74-year-old woman with a history of breast cancer. She is doing well on tamoxifen. She has no evidence of recurrence. She will be due for mammogram in October. She tells me that she is planning on moving to [place]. She will follow up with an oncologist in [place]. She does have some chronic thrombocytopenia which has never required therapy and has been stable.
--- NOTE | 2020-03-02 09:09 | ONC.SCHED ---
Patient called from [place] to let us know that she is stuck down there for now due to the [place] virus. She is coming up on 1 yr since her last visit and will be needing a prescription for tamoxifen. She is going to contact the pharmacy to initiate that request. When she has a better idea of her return date, she'll call to get scheduled.
== END ==
PROVIDERS: Family Provider Family Medicine; PCP Family Medicine
DX: C50.911 Malignant neoplasm of unspecified site of right female breast (principal); D69.6 Thrombocytopenia, unspecified; Z17.0 Estrogen receptor positive status [ER+]; Z79.810 Long term (current) use of selective estrogen receptor modulators (SERMs)
CPT/HCPCS: 36415; 80053; 85025; 99214

== ENCOUNTER 2019-05-12 08:46 | Day surgery (SDC) | payer MEDICARE, SELFPAY ==
[2019-04-25 10:45] VITALS: BMI 32.5
[2019-05-12] VITALS (10 sets, daily range): BP systolic 109–136; BP diastolic 41–75; PULSE 70–83; RESP 12–20; TEMP 36.2–37.3; O2SAT 92–97; BMI 32.5
--- NOTE | 2019-05-12 | PATH_ITS ---
[facility] Accession Number: [id number] . 01 Material submitted: . endometrium - ENDOMETRIAL POLYP . 02 Diagnosis: Endometrium, Polyp, Biopsy: Benign endometrial polyp. No evidence of neoplasia or hyperplasia. [facility]05/14/2019 . 02 Electronically signed: . Leticia Deras MD, Pathologist NPI- [id number] . 01 Gross description: . ENDOMETRIAL POLYP: Received in formalin are minute fragments of mucoid and hemorrhagic material measuring 1.5 x 1.5 x 0.5 cm in aggregate. Submitted in toto in 1 cassette. /D[facility] /[facility] . 02 Pathologist provided ICD-10: N84.0 . 02 CPT . 869347 Performed at: 01 [facility] [address] [facility], [place], [place] [id number] MD Hossein Castro MD Phone: [phone] Performed at: 02 [facility] [address] [place], [place] [id number] MD Leticia Deras MD Phone: [phone]
[2019-05-12] MEDS: LACTATED RINGERS 1,000 ML 42 ML IV (09:14)
--- NOTE | 2019-05-12 09:24 | SUR.PREOP ---
Several adverse reactions on chart, pt denied all and this confirmed by spouse as not correct as well.
--- NOTE | 2019-05-12 09:52 | PM.HP.1 ---
History of Present Illness Date Patient Seen: 05/12/19 Time Patient Seen: 09:52 Chief complaint: [id number] Narrative: Patient is a 74-year-old with breast cancer on tamoxifen. She has endometrial hyperplasia with cystic areas consistent with an endometrial polyp. She is here for a D&C hysteroscopy, polypectomy, and cauterization of endometrium Patient History Medical History (Updated 04/25/19 @ 10:57 by Leidy Martinez RN) Breast cancer (Chronic 10/2015) Endometrial hyperplasia (Resolved ~10/2016) History of ITP (Resolved) Hearing loss (Chronic 1997) History of hysteroscopy (Acute 10/27/16) Splenomegaly (Acute) Frequent UTI (Chronic ~1999) Osteoarthritis (Chronic ~1989) Peripheral neuropathy (Chronic ~1999) Subarachnoid bleed (Chronic 2012) Chicken pox (Resolved) 3 para 3 (Resolved) Hayfever (Resolved) Measles (Resolved) Mumps (Resolved) Precancerous skin lesion (Resolved ~2004) Rib fracture (Resolved ~2008) Rubella (Resolved) Sleep apnea (Resolved) Surgical History (Updated 04/02/19 @ 13:29 by Prateek Joseph MD) History of local excision of skin lesion (Resolved ~2004) History of local excision of skin lesion (Resolved 2011) Status post breast biopsy (Resolved 10/13/15) Status post dilation and curettage (Resolved 10/27/16) Status post partial mastectomy (Resolved 11/27/15) Family History (Updated 08/21/18 @ 11:53 by Destiny Mesa) Brother Heart disease Father Diabetes mellitus Heart disease Osteoporosis Stroke Cancer Mother Heart disease Osteoporosis Stroke Sister No problems noted. Sister No problems noted. Social History household members: spouse Smoking Status: Never smoker Family & Social History Social History: household members spouse Tobacco & Substance use: Smoking Status Never smoker Meds Home Medications Medication Instructions Recorded Confirmed Type tamoxifen 20 mg PO QDAY #90 tab 02/23/17 04/25/19 Rx ascorbic acid (vitamin C) [Vitamin 500 mg PO DAILY 04/12/18 04/25/19 History C] Probiotic See Rx Instructions .ROUTE 04/23/18 04/25/19 History .COMPLEX #0 cholecalciferol (vitamin D3) 5,000 unit PO DAILY 04/23/18 04/25/19 History vitamin B complex 1 cap PO DAILY #0 04/23/18 04/25/19 History CMP Estrial See Rx Instructions .ROUTE 07/05/18 04/25/19 Rx .COMPLEX #30 gram cyanocobalamin (vitamin B-12) 1,000 mcg PO DAILY 04/02/19 04/25/19 History [Vitamin B-12] hydrocortisone 1 % topical cream 1 applictn TOP BID #30 gram 04/22/19 04/25/19 Rx Allergies Allergy/AdvReac Type Severity Reaction Status Date / Time tree nut [TREE NUT] Allergy Severe ANAPHYLATIC Verified 04/22/19 09:03 Exam Vital Signs (past 8 hours): - 05/12/19 09:06 Temperature 99.2 F Pulse Rate 70 Respiratory Rate 18 Blood Pressure 109/55 L Pulse Oximetry 94 Oxygen Delivery Method Room Air Narrative Exam Narrative: HEENT: No thyromegaly, no anterior cervical or supraclavicular lymphadenopathy. Lungs:Clear to auscultation bilaterally, no wheezes. Cardiovascular: Regular rate and rhythm, no murmurs, rubs, or gallops. Abdomen: No scars. No hepatosplenomegaly. No masses palpable. External genitalia: Normal Vagina: Normal Cervix: Normal Bimanual exam: 6 Week size uterus. Mobile. Rectal: No masses. Ultrasound: Thickened endometrial lining Assessment & Plan Assessment & Plan narrative: Assessment: 74-year-old with breast cancer on tamoxifen with endometrial hyperplasia with cystic areas consistent with an endometrial polyp Plan: D&C hysteroscopy with polypectomy and cauterization of endometrial canal The risks, benefits, and alternatives to the procedure were explained to the patient. The risks including bleeding, infection and uterine perforation. She understands these risks and agrees to proceed. A full par Q was held and consent form was signed. Time Spent With Patient Time with patient: 15-24 minutes
--- NOTE | 2019-05-12 09:54 | PM.PREOP ---
Pre-operative Note Interval Note History & Physical reviewed/Exam performed by Physician: Yes Changes to H&P: No
--- NOTE | 2019-05-12 10:12 | SUR.OPER ---
Lithotomy on padded OR bed, head on pillow, arms secured on padded arm boards at <90 degrees abduction. Legs secured in padded yellow fins stirrups.
[2019-05-12] MEDS: fentaNYL 100 MCG/2 ML INJ 50 MCG IV ×2 (10:59→11:15)
[2019-05-12] MEDS: OXYCODONE/ACETAMINOPHEN 5/325 TABLET 1 TAB PO (11:24)
--- NOTE | 2019-05-12 11:55 | SUR.PHASEII ---
1150 Assumed care, reported that patient was stable, ready to discharge. IV dc'd, assisted patient to the bathroom to void and dress.
--- NOTE | 2019-05-12 11:59 | SUR.PHASEII ---
Error in documenting IV intake, 800 ml infused as on the I&O record.
--- NOTE | 2019-05-12 12:12 | SUR.PHASEII ---
1209 Instructions reviewed, no questions, Dr. Keller approved patient taking ibuprofen (standard dose) q6h -- relayed to patient. Stable on feet. Denies feeling light headed when sitting on edge of bed prior to ambulation. Resp unlabored, skin warm and dry. Scant red vag flow. Stable for discharge.
--- NOTE | 2019-05-12 21:08 | PM.GYNOP.1 ---
Operative Date/Time/Diagnoses Date of procedure: 05/12/19 Time of procedure: 10:30 Pre-op diagnosis: Endometrial hyperplasia History of breast cancer Tamoxifen therapy Endometrial polyp Post-op diagnosis: same Procedure: Procedures Operation Date: 05/12/19 09:45 Actual Procedures Side Surgeon p Hysteroscopy D&C and resection of endometrial polyp and cauterization of endometrium Yael Keller MD Indications: Tamoxifen therapy History of breast cancer Endometrial hyperplasia Endometrial polyp Surgeon: Yael Keller Anesthesia Type: General (LMA) Operative Notes Findings: Seven week size anteverted uterus Both fallopian tube ostia observed Multiple large polyps throughout Closure Type: not applicable Specimen(s): endometrial polyp Estimated blood loss (mL): 10 Blood products transfused: none Procedure in detail: After informed consent was obtained, the patient was taken to the operating room where she was placed in the dorsal supine position. After adequate LMA general anesthesia was achieved, she was placed in the dorsal lithotomy position, and prepped and draped in the usual sterile fashion. A time-out was performed. A bivalve speculum was placed into the vagina and the anterior lip of the cervix was grasped with a single-tooth tenaculum. The cervical os was sequentially dilated until the hysteroscope passed easily into the endometrial cavity. Initial inspection revealed both fallopian tube ostia and multiple large polyps. The hysteroscope was removed. The cervix was dilated to the # 9 Hegar dilator. The resectoscope was placed. The polyps were resected in approximately 20 pieces. The settings were 80 cut and 40 cautery. The endometrium was then cauterized with the loop. The instruments were removed from the uterus. The single-tooth tenaculum was removed from the anterior lip of the cervix. The bivalve speculum was removed from the vagina. Sponge, lap, and instrument counts were correct x2. The patient tolerated the procedure well, and was taken to PACU in stable condition. Complications: none Post-operative Condition: stable Disposition: PACU Plan for aftercare: Home after recovery
== END 2019-05-12 12:09 | disposition home or self-care (01) ==
PROVIDERS: Family Provider Obstetrics & Gynecology; PCP Family Medicine; Visit Provider Obstetrics & Gynecology
PROC: 0UDB8ZZ Extraction of Endometrium, Via Natural or Artificial Opening Endoscopic (ICD-10-PCS; CPT 58558; principal; 2019-05-12 09:45)
DX: N84.0 Polyp of corpus uteri (principal); C50.919 Malignant neoplasm of unspecified site of unspecified female breast; Z79.810 Long term (current) use of selective estrogen receptor modulators (SERMs)
CPT/HCPCS: 58558; 88305; J2250; J3010